=== PATIENT | male | born 1990 | race Caucasian/White ===

== ENCOUNTER 2020-09-30 22:28 | Emergency (ER) | payer SELFPAY ==
[2020-09-30] MEDS ORDERED: Mag-Al Plus 1200 MG/1200 MG/120 MG/30 ML UDCUP ONE (22:48)
[2020-09-30] MEDS ORDERED: Lidocaine Viscous Sol 2% 15 ml UD Cup ONE (22:49)
[2020-09-30] MEDS ORDERED: Morphine 4 MG/ML VIAL ONE ×2 (23:28→23:29)
[2020-09-30 23:42] LABS: #Monocytes 0.6 10x3/uL (0.0-1.1); #Neutrophils 8.2 10x3/uL (1.5-8.4); %Basophils 0.1 % (0.0-2.0); %Eosinophils 0.4 % (0.0-6.0); %Lymphocytes 20.1 % (18.0-47.0); %Monocytes 5.6 % (0.0-10.0); %Neutrophils 73.4 % (40.0-75.0); Hemoglobin 15.2 g/dL (13.5-17.5); Mean Corpuscular HGB CONC 34.5 g/dL (32.0-36.0); Mean Corpuscular Hemoglobin 31.3 pg (27.0-33.0); Mean Corpuscular Volume 90.7 fl (81.2-95.1); Mean Platelet Volume 9.3 fl (7.4-10.4); Platelet Count 236 10x3/uL (150-450); RBC Distribution Width 12.4 % (11.5-14.5); Red Blood Cell (RBC) Count 4.85 10x6/uL (4.32-5.72); White Blood Cell (WBC) Count 11.1 10x3/uL (3.5-10.5)
[2020-09-30 23:53] LABS: ALT (SGPT) 14 U/L (8-55); AST (SGOT) 19 U/L (5-34); Albumin 4.1 g/dL (3.5-5.0); Alkaline Phosphatase 78 U/L (40-110); Anion Gap 11 mmol/L (10-20); BUN (Urea Nitrogen) 10 mg/dL (8.9-20.6); Bilirubin, Total 0.4 mg/dL (0.2-1.2); Calc. Creatinine Clearance 0 mL/min (70-130); Calcium 8.9 mg/dL (7.8-10.44); Carbon Dioxide 30 mmol/L (22-29); Chloride 99 mmol/L (98-107); Globulin 2.5 g/dL (2.4-3.5); Glucose 124 mg/dL (70-105); Lipase 15 U/L (8-78); Potassium 3.2 mmol/L (3.5-5.1); Protein, Total 6.6 g/dL (6.0-8.3); Sodium 137 mmol/L (136-145)
[2020-10-01] MEDS ORDERED: Promethazine HCl 25 MG/ML VIAL ONE (01:00)
[2020-10-01 02:13] LABS: Bilirubin Neg (Negative); Blood, Urine Negative (Negative); Clarity Clear (Clear); Glucose, Urine (Dipstick) Normal (Negative); Ketone, Urine Negative (Negative); Leukocyte 25 (Negative); Nitrite Negative (Negative); Protein, Urine (Dipstick) Negative (Neg-Trace); Specific Gravity, Urine 1.015 (1.002-1.036); Urobilinogen Normal mg/dL (Less than 2)
[2020-10-01 02:21] LABS: Amphetamine Detected (NotDetected); Barbiturates Screen Not Detected (NotDetected); Benzodiazepine Screen Not Detected (NotDetected); Cocaine Metabolite Screen Not Detected (NotDetected); Methadone Not Detected (NotDetected); Methamphetamine Detected (NotDetected); Opiate Screen Detected (NotDetected); Oxycodone Screen Not Detected (NotDetected); Phencyclidine (PCP) Not Detected (NotDetected); THC/Cannabinoid Screen Not Detected (NotDetected); Tricyclic Screen Not Detected (NotDetected)
[2020-10-01 02:23] LABS: RBC/HPF None Seen HPF (0-3); Squamous Epithelial 0-3 HPF (0-3); WBC/HPF 0-3 HPF (0-3)
== END 2020-10-01 03:01 | disposition home or self-care (01) ==
LOC: CSHERS 22:28
DX: K56.0 Paralytic ileus (principal); F15.10 Other stimulant abuse, uncomplicated
CPT/HCPCS: 74177; 80053; 80306; 81003; 81015; 83690; 85025; 93005; 96365; 96375; J2270; J2550

== ENCOUNTER 2021-10-08 12:53 | Emergency (ER) | payer SELFPAY | END 2021-10-08 15:09 | disposition home or self-care (01) | LOC: CSHERS 12:53 | DX: S00.85XA Superficial foreign body of other part of head, initial encounter (principal); W45.8XXA Other foreign body or object entering through skin, initial encounter | CPT/HCPCS: 10120 ==

== ENCOUNTER 2021-12-23 02:35 | Emergency (ER) | payer SELFPAY ==
[2021-12-23] MEDS ORDERED: Bacitracin 1 PK ONE (03:36)
[2021-12-23] MEDS ORDERED: Ketorolac Tromethamine 30 MG/ML VIAL ONE (03:37)
[2021-12-23 03:42] LABS: #Eosinphils 0.1 10x3/uL (0.0-0.5); #Monocytes 0.8 10x3/uL (0.0-1.1); #Neutrophils 3.1 10x3/uL (1.5-8.4); %Basophils 0.3 % (0.0-2.0); %Eosinophils 0.8 % (0.0-6.0); %Lymphocytes 38.2 % (18.0-47.0); %Neutrophils 48.7 % (40.0-75.0); Hemoglobin 14.5 g/dL (13.5-17.5); Mean Corpuscular HGB CONC 35.7 g/dL (32.0-36.0); Mean Corpuscular Hemoglobin 32.5 pg (27.0-33.0); Mean Platelet Volume 9.2 fl (7.4-10.4); Platelet Count 183 10x3/uL (150-450); RBC Distribution Width 13.2 % (11.5-14.5); Red Blood Cell (RBC) Count 4.46 10x6/uL (4.32-5.72); White Blood Cell (WBC) Count 6.3 10x3/uL (3.5-10.5)
[2021-12-23 03:58] LABS: ALT (SGPT) 25 U/L (8-55); AST (SGOT) 26 U/L (5-34); Albumin 4.5 g/dL (3.5-5.0); Alkaline Phosphatase 63 U/L (40-110); Anion Gap 15 mmol/L (10-20); BUN (Urea Nitrogen) 12 mg/dL (8.9-20.6); CK (CPK) 137 U/L (30-200); Calc. Creatinine Clearance 0 mL/min (70-130); Calcium 9.5 mg/dL (7.8-10.44); Carbon Dioxide 29 mmol/L (22-29); Chloride 103 mmol/L (98-107); Globulin 2.4 g/dL (2.4-3.5); Glucose 104 mg/dL (70-105); Lipase 7 U/L (8-78); Magnesium 2.1 mg/dL (1.6-2.6); Potassium 4.2 mmol/L (3.5-5.1); Protein, Total 6.9 g/dL (6.0-8.3); Sodium 143 mmol/L (136-145)
== END 2021-12-23 05:52 | disposition home or self-care (01) ==
LOC: CSHERS 02:35
DX: S09.90XA Unspecified injury of head, initial encounter (principal); L03.221 Cellulitis of neck; R07.89 Other chest pain; R20.2 Paresthesia of skin; X58.XXXA Exposure to other specified factors, initial encounter
CPT/HCPCS: 70450; 70491; 71045; 80053; 82550; 83690; 83735; 84484; 85025; 93005; 96374; J1885